=== PATIENT | female | born 1960 | race Caucasian/White ===

== ENCOUNTER 2018-09-10 06:27 | Day surgery (SDC) | payer MEDICAID ==
[2018-09-10] MEDS ORDERED: Sodium Chloride 0.9% 1,000 ML IV SCH (07:15)
[2018-09-10] MEDS ORDERED: Midazolam 1 MG/ML 2 ML SDV ONE (07:17)
[2018-09-10] MEDS ORDERED: fentaNYL 100 MCG/2 ML SDV ONE (07:17)
[2018-09-10] MEDS ORDERED: Propofol 200 MG/20 ML SDV ONE (07:17)
--- NOTE | 2018-09-11 08:11 | OR ---
DATE OF PROCEDURE: 09/10/2018 PROCEDURE: 1. EGD. 2. Colonoscopy. FINDINGS: 1. Small petechiae lesion in the duodenum, concerning for possible thrush (biopsy using cold biopsy forceps). 2. Diverticulosis, mild, limited to sigmoid colon. 3. Transverse colon polyp, approximately 5 mm, completely removed using cold biopsy forceps. COMPLICATIONS: None. FERRYBOAT HELPER: None. ANESTHESIA: MAC. PREOPERATIVE DIAGNOSIS: 1. Epigastric pain. 2. Screening colonoscopy. POSTOPERATIVE DIAGNOSIS: 1. Epigastric pain. 2. Screening colonoscopy. RISKS: Risks, benefits, alternatives, and limitations including but not limited to infection, bleeding, and perforation other risks not listed here were explained to the patient who wished to proceed. DESCRIPTION OF PROCEDURE: The patient was placed in left lateral decubitus position. The EGD scope was introduced and advanced atraumatically to the second part of the duodenum and in the duodenum visualized plaque-like lesions. No evidence of duodenitis or ulceration. These plaque-like lesions were biopsied using cold biopsy forceps. On retroflex, no palpable hernia. The GE junction was normal. Esophagus was normal. A digital rectal exam was performed. The scope was introduced and advanced atraumatically to the ileocecal valve. A photo was taken. The scope was brought back to the ascending, transverse, descending colon and retroflexed. The aforementioned polyp was identified and completely removed. Diverticulosis was described as mild and limited to sigmoid colon. No abnormalities on retroflex. The patient tolerated the procedure well. Bk Claros MD /[id number]
== END 2018-09-10 09:10 | disposition home or self-care (01) ==
LOC: JP.SDS 06:27
PROVIDERS: ATTEND Surgery
DX: R10.13 Epigastric pain (principal); K31.89 Other diseases of stomach and duodenum; Z12.11 Encounter for screening for malignant neoplasm of colon; D12.3 Benign neoplasm of transverse colon; K57.30 Diverticulosis of large intestine without perforation or abscess without bleeding; G47.33 Obstructive sleep apnea (adult) (pediatric); K21.9 Gastro-esophageal reflux disease without esophagitis
CPT/HCPCS: 43239; 45380; 88305; J2250; J2704; J3010; J7030

== ENCOUNTER 2022-11-04 06:27 | Day surgery (SDC) | payer BC ==
[2022-11-04] MEDS ORDERED: Sodium Chloride 0.9% 1,000 ML IV SCH (07:00)
[2022-11-04] MEDS ORDERED: Midazolam 1 MG/ML 2 ML SDV ONE (07:34)
[2022-11-04] MEDS ORDERED: Propofol 200 MG/20 ML SDV ONE ×2 (07:34→08:03)
[2022-11-04] MEDS ORDERED: fentaNYL 50 MCG/ML SDV ONE (07:34)
== END 2022-11-04 09:35 | disposition home or self-care (01) ==
LOC: JP.SDS 06:27
PROVIDERS: ATTEND Surgery
DX: Z12.11 Encounter for screening for malignant neoplasm of colon (principal); K31.7 Polyp of stomach and duodenum; K57.30 Diverticulosis of large intestine without perforation or abscess without bleeding; K29.70 Gastritis, unspecified, without bleeding; K21.9 Gastro-esophageal reflux disease without esophagitis; G47.33 Obstructive sleep apnea (adult) (pediatric); E78.5 Hyperlipidemia, unspecified; E03.9 Hypothyroidism, unspecified; E66.9 Obesity, unspecified; Z87.19 Personal history of other diseases of the digestive system; Z88.0 Allergy status to penicillin; Z91.040 Latex allergy status; Z91.048 Other nonmedicinal substance allergy status; Z79.899 Other long term (current) drug therapy
CPT/HCPCS: 43239; 45378; 88305; J2250; J2704; J3010; J7030